=== PATIENT | female | born 1995 | race American Indian/Alaskan Native ===

== ENCOUNTER 2017-06-21 15:31 | Outpatient (CLI) | payer OTHER ==
[2017-06-21 15:49] VITALS: BP 129/63
[2017-06-21 17:18] LABS: Bilirubin,Urine Negative (Negative); Blood,Urine Negative (Negative); Ketones,Urine Negative (Negative); Nitrite,Urine Negative (Negative); Protein,Urine <30 mg dL mg/dL (Negative)
[2017-06-21 17:19] LABS: Leukocyte Esterase,Urine Moderate (Negative)
== END 2017-06-21 17:45 | disposition home or self-care (01) ==
LOC: TRG 15:31
PROVIDERS: ATTEND Obstetrics & Gynecology
DX: O47.03 False labor before 37 completed weeks of gestation, third trimester (principal); Z3A.30 30 weeks gestation of pregnancy
CPT/HCPCS: 59025; 81001